=== PATIENT | male | born 1995 | race African-American/Black ===

== ENCOUNTER 2016-07-02 07:13 | Emergency (ER) | payer OTHER ==
[~2016-07-02] VITALS: Ht 172.7 cm; Wt 78.5 kg
[2016-07-02] MEDS ORDERED: fentaNYL 100 MCG/2 ML INJECTION (J3010) IV PRN (08:15)
--- NOTE | 2016-07-02 08:36 | REP ---
Chest one-view HISTORY: Trauma Comparison: None The lungs are clear. The heart is normal in size. The pulmonary vasculature is normal in appearance. Impression: No acute disease. Signed by Tai Andino MD 07/02/2016 08:27 A
[2016-07-02 08:53] LABS: BASO % 0.3 % (0.0-1.0); EOS # 0.1 K/mm3 (0.0-0.50); EOS % 1.5 % (0.0-3.0); LARGE UNSTAINED CELL # 0.1 K/mm3 (0.0-0.4); LARGE UNSTAINED CELL % 2.9 % (0.0-4.0); LYMPH # 0.7 K/mm3 (1.5-6.5); LYMPH % 18.2 % (24.0-44.0); MEAN CORPUSCULAR HEMOGLOBIN 30.4 pg (27.0-33.0); MEAN CORPUSCULAR HGB CONC 34.3 g/dl (32.0-36.5); MEAN CORPUSCULAR VOLUME 88.7 fl (80.0-96.0); MONO # 0.3 K/mm3 (0.0-0.8); MONO % 8.4 % (0.0-5.0); NEUTROPHILS # 2.7 K/mm3 (1.8-7.7); NEUTROPHILS % 68.7 % (36.0-66.0); PLATELET COUNT, AUTOMATED 149 k/mm3 (150-450); RED CELL DISTRIBUTION WIDTH 12.5 % (11.5-14.5); WHITE BLOOD COUNT 3.9 K/mm3 (4.0-10.0)
[2016-07-02 08:58] LABS: INR 1.13
[2016-07-02 09:13] LABS: ALBUMIN 3.4 GM/DL (3.2-5.2); ALBUMIN/GLOBULIN RATIO 1.06 (1.00-1.93); ALKALINE PHOSPHATASE 64 U/L (45-117); ALT/SGPT 71 U/L (12-78); ANION GAP 7 MEQ/L (8-16); AST/SGOT 264 U/L (15-37); BILIRUBIN,DIRECT 0.2 MG/DL (0.0-0.2); BILIRUBIN,TOTAL 0.6 MG/DL (0.2-1.0); BLOOD UREA NITROGEN 12 MG/DL (7-18); CALCIUM LEVEL 8.1 MG/DL (8.5-10.1); CARBON DIOXIDE LEVEL 30 MEQ/L (21-32); CHLORIDE LEVEL 103 MEQ/L (98-107); CREATININE FOR GFR 1.13 MG/DL (0.70-1.30); GLOMERULAR FILTRATION RATE > 60.0 (>60); GLUCOSE, FASTING 101 MG/DL (70-105); POTASSIUM SERUM 3.9 MEQ/L (3.5-5.1); SODIUM LEVEL 140 MEQ/L (136-145); TOTAL PROTEIN 6.6 GM/DL (6.4-8.2)
[2016-07-02] MEDS ORDERED: ISOVUE-370 76% 100ML VIAL (Q9967) As Ordered ONE (09:19)
--- NOTE | 2016-07-02 09:41 | REP ---
CT Head without contrast HISTORY: Trauma COMPARISON: None There is no intraparenchymal hemorrhage, acute infarct, mass or midline shift. The ventricular system is normal in appearance. There is no extra cerebral collection. There is no fracture. The visualized sinuses are clear. IMPRESSION: There is no intracranial lesion. Signed by Tai Andino MD 07/02/2016 09:32 A
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
[2016-07-02 13:20] VITALS: BP 138/60
[2016-07-02] MEDS ORDERED: PERC5TAB6 PO (13:21)
--- NOTE | 2016-07-02 20:37 | ECGEPIP ---
Stationary ECG Study [facility] - ED Test Date: 2016-07-02 Pat Name: CAMILLE DOSS Department: Room: - Gender: M [employer] Pricer: CRISTINA : [phone] Requested By: WEN Hyde Order Number: [id number] Reading MD: Nimesh Fierro Measurements Intervals [place] Rate: 85 P: 71 DE: 143 QRS: 68 QRSD: 91 T: -3 QT: 315 QTc: 376 Interpretive Statements SINUS RHYTHM ST ELEVATION, PROBABLY EARLY REPOLARIZATION NONSPECIFIC T-WAVE ABNORMALITY NO PRIORS Electronically Signed On 07-02-2016 20:37:33 EST by Nimesh Fierro
== END 2016-07-02 14:09 | disposition home or self-care (01) ==
LOC: EDBD 07:13 → M ED 08:10
DX: S27.322A Contusion of lung, bilateral, initial encounter (principal); S22.42XA Multiple fractures of ribs, left side, initial encounter for closed fracture; S22.31XA Fracture of one rib, right side, initial encounter for closed fracture; S42.026A Nondisplaced fracture of shaft of unspecified clavicle, initial encounter for closed fracture; V49.50XA Passenger injured in collision with unspecified motor vehicles in traffic accident, initial encounter; Y92.410 Unspecified street and highway as the place of occurrence of the external cause; Y93.89 Activity, other specified; Y99.8 Other external cause status
CPT/HCPCS: 36415; 70450; 71010; 71260; 80048; 80076; 81001; 83605; 83690; 85025; 85610; 85730; 86850; 86900; 86901; 87040; 93005; 93041; 94760; 96374; 99285; J3010; Q9967

== ENCOUNTER → 2016-08-08 | Outpatient (CLI) | payer OTHER ==
[~2016-08-08] MED LIST: ISOVUE-370 76% 100ML VIAL (Q9967) As Ordered ONE; PERC5TAB6 PO
--- NOTE | 2016-08-08 08:56 | REP ---
CT CHEST WITH CONTRAST: 08/08/2016 COMPARISON: 07/02/2016 CT. CLINICAL HISTORY: Followup left-sided multifocal pulmonary laceration and multiple rib fractures. FINDINGS. The patient received a bolus of 75 mL of Isovue 370 and scanning through the chest with coronal and sagittal reconstructions. Thick slab coronal MIP reformats were also presented. FINDINGS: Lungs are well inflated. There is no evidence of a pneumothorax. There are two separate pleural-based rounded soft tissue densities in the periphery of the left upper lobe at the site of the previous pulmonary lacerations. These are smooth in margin and homogeneous in density in the mid 40s Hounsfield unit attenuation. Findings suggest hemorrhagic contusion/fluid in the region of the previous pulmonary laceration. The superior segment right lower lobe lung contusion opacity is resolved with minimal curvilinear atelectasis or fibrotic change. I do not see pleural effusions. There is no other lung parenchymal finding. Heart is not enlarged. There is no pericardial thickening or effusion. Aortic aneurysm or dissection and no pathologic sized mediastinal or hilar adenopathy. Central pulmonary arteries are unremarkable. No axillary, supraclavicular mass is noted. Bone windows show the sternum and manubrium intact. There is a healing fracture of the medial head of the right clavicle and a subtle corner avulsion of the anterior margin of the right 1st rib unchanged. The left lateral and anterolateral left 3rd through 6th ribs show healing fractures with some callus formation beginning. No displacement of significance. Scapulae and humeral heads intact. The upper abdomen shows that portion of the liver intact. The spleen is not enlarged. The stomach shows no hiatal hernia. Upper poles of kidneys and adrenal glands normal. IMPRESSION: 1. Healing left 3rd through 6th rib fractures and a medial fracture of the right clavicular head and the anterior corner of the right 1st rib. 2. Two rounded pleural-based densities in the left upper lung zone peripherally representing some homogeneous presumed fluid likely hemorrhagic contusion in the region of his parenchymal lung laceration. No pneumothorax or new finding. Signed by Feliciano Smith MD 08/08/2016 03:26 P
== END ==
LOC: M RAD 07:43
PROVIDERS: ATTEND Physician Assistant
DX: R91.8 Other nonspecific abnormal finding of lung field (principal)
CPT/HCPCS: 71260; Q9967